=== PATIENT | female | born 1960 | race Caucasian/White ===

== ENCOUNTER 2017-09-06 20:55 | Emergency (ER) | payer OTHER ==
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
[2017-09-06 22:15] VITALS: BP 108/78
== END 2017-09-06 22:14 | disposition home or self-care (01) ==
DX: Z74.1 Need for assistance with personal care (principal); F17.200 Nicotine dependence, unspecified, uncomplicated

== ENCOUNTER 2017-12-26 21:52 | Emergency (ER) | payer OTHER ==
[2017-12-26 21:55] VITALS: BP 141/98
[2017-12-26] MEDS ORDERED: PERMETHRIN 5% 60 GM CREAM TP ONE (22:10)
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
== END 2017-12-26 22:28 | disposition home or self-care (01) ==
LOC: EDUNIT#
DX: B86 Scabies (principal); F10.20 Alcohol dependence, uncomplicated; F17.200 Nicotine dependence, unspecified, uncomplicated; Z59.0 Homelessness

== ENCOUNTER 2018-01-19 10:53 | Emergency (ER) | payer OTHER ==
[2018-01-19 11:01] VITALS: BP 122/88
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
== END 2018-01-19 11:42 | disposition home or self-care (01) ==
DX: M54.6 Pain in thoracic spine (principal); F43.10 Post-traumatic stress disorder, unspecified; Z59.0 Homelessness